=== PATIENT | female | born 1960 | race Caucasian/White ===

== ENCOUNTER → 2017-01-19 | Outpatient (CLI) | payer MEDICARE ==
[~2017-01-19] MED LIST: AMBIEN5 MG PO; ATIVAN 0.50.5 MG/TAB PO; DILAUDID 4MG TAB4 MG PO; FLUOXETINE40 MG PO; GABAPENTIN300 MG PO; NEURONTIN600 MG/TAB PO; NORCO 325 MG-101 TAB PO; NORCO 325 MG-7.1 TAB PO; OXYCODONE CR10 MG PO; PROZAC 10MG10 MG PO; PROZAC 20MG20 MG PO; PROZAC40 MG PO; ULTRAM 50MG TAB50 MG PO; ZANAFLEX 4MG TAB4 MG PO
== END ==
LOC: COL.RAD 08:39
DX: M25.512 Pain in left shoulder (principal)
CPT/HCPCS: J3301; Q9967

== ENCOUNTER → 2017-03-21 | Outpatient (REF) ==
[2017-03-21 08:25] LABS: PH 6 (5-8); SQUAMOUS EPITHELIAL 0-2 /hpf; URINE APPEARANCE Clear; URINE BACTERIA None Seen /hpf; URINE BILIRUBIN Negative (NEGATIVE); URINE BLOOD Negative (NEGATIVE); URINE COLOR Yellow; URINE GLUCOSE Negative (NEGATIVE); URINE KETONE Negative (NEGATIVE); URINE RBC 0-2 /hpf; URINE UROBILINOGEN Negative (NEGATIVE)
== END ==
LOC: ZMSC 08:03
PROVIDERS: Orthopaedic Surgery
DX: Z01.89 Encounter for other specified special examinations (principal)

== ENCOUNTER 2017-11-27 13:58 | Inpatient (IN) | payer MEDICARE ==
[~2017-11-27] VITALS: Ht 160 cm; Wt 89.9 kg
[~2017-11-27 13:58] MED LIST changes: -CONZIP200 MG PO
[2017-11-27 15:16] VITALS: BP 97/56; PULSE 96; TEMP 99.5
[2017-11-27] MEDS ORDERED: CONZIP200 MG PO (20:42)
[2017-11-27 21:50] VITALS: BP 99/64; PULSE 83; TEMP 99
[2017-11-28] VITALS (19 sets, daily range): BP systolic 60–139; BP diastolic 28–84; PULSE 68–118; TEMP 97.9–99.6
[2017-11-28 06:45] LABS: BASO % 0.2 % (0.0-2.0); EOS # 0.1 (0.0-0.7); EOS % 0.7 % (0-4.0); GRAN # 14.7 (1.4-6.5); GRAN % 80.1 % (42.2-75.2); LYMPH # 2.4 (1.2-3.4); LYMPH % 12.8 % (20.0-51.0); MEAN CELL VOLUME 90 fl (80.0-100.0); MEAN CORPUSCULAR HGB CONC 32 g/dl (33.0-37.0); MEAN PLATELET VOLUME 8.5 fl (7.4-10.4); MONO # 1.1 (0.1-0.6); MONO % 5.8 % (1.7-9.3); PLATELET COUNT 286 K/mm3 (130-400); RED BLOOD COUNT 3.92 M/mm3 (4.10-5.30); REDCELL DISTRIBUTION WIDTH-CV 13.2 % (11.5-14.5)
[2017-11-28 07:00] LABS: CALCIUM 8.1 mg/dL (8.4-10.2); CREATININE, serum 1.28 mg/dL (0.52-1.25); POTASSIUM 4.1 mmol/L (3.4-5.0)
[2017-11-28 07:06] LABS: HEMATOCRIT 35.3 % (37.0-47.0); HEMOGLOBIN 11.3 g/dl (12.5-16.0); MEAN CORPUSCULAR HEMOGLOBIN 29 pg (27.0-31.0)
[2017-11-28 07:37] LABS: C-REACTIVE PROTEIN 8.5 mg/dL (0.0-0.9)
[2017-11-29 03:16] VITALS: BP 102/54; PULSE 69; TEMP 97.5
[2017-11-29 07:44] VITALS: BP 90/57; PULSE 71; TEMP 97.6
[2017-11-29 08:40] LABS: BASO % 0.2 % (0.0-2.0); GRAN # 14.6 (1.4-6.5); HEMATOCRIT 34.4 % (37.0-47.0); HEMOGLOBIN 11.2 g/dl (12.5-16.0); LYMPH # 1.1 (1.2-3.4); LYMPH % 6.4 % (20.0-51.0); MEAN CELL VOLUME 88 fl (80.0-100.0); MEAN CORPUSCULAR HEMOGLOBIN 29 pg (27.0-31.0); MEAN CORPUSCULAR HGB CONC 33 g/dl (33.0-37.0); MEAN PLATELET VOLUME 8.5 fl (7.4-10.4); MONO # 0.6 (0.1-0.6); MONO % 3.4 % (1.7-9.3); PLATELET COUNT 258 K/mm3 (130-400); REDCELL DISTRIBUTION WIDTH-CV 12.9 % (11.5-14.5)
[2017-11-29 08:59] LABS: CREATININE, serum 0.8 mg/dL (0.52-1.25); MAGNESIUM 2.2 mg/dL (1.6-2.3)
[2017-11-29 09:12] LABS: CALCIUM 8.7 mg/dL (8.4-10.2); POTASSIUM 4.1 mmol/L (3.4-5.0)
[2017-11-29 11:56] VITALS: BP 109/53; PULSE 72; TEMP 98.2
[2017-11-29 14:59] VITALS: BP 98/72; PULSE 77; TEMP 98.9
[2017-11-29 19:16] VITALS: BP 142/71; PULSE 77; TEMP 98
[2017-11-30 00:23] VITALS: BP 136/71; PULSE 64; TEMP 97.4
[2017-11-30] MEDS ORDERED: VIVLODEX5 MG PO (01:15)
[2017-11-30] MEDS ORDERED: AMITRIPTYLINE H10 M1 PO (01:16)
[2017-11-30 03:52] VITALS: BP 139/78; PULSE 62; TEMP 97.8
[2017-11-30 06:50] LABS: BASO % 0.2 % (0.0-2.0); EOS # 0.1 (0.0-0.7); EOS % 0.4 % (0-4.0); GRAN # 13.2 (1.4-6.5); GRAN % 81.3 % (42.2-75.2); LYMPH # 2.2 (1.2-3.4); LYMPH % 13.7 % (20.0-51.0); MEAN CELL VOLUME 87 fl (80.0-100.0); MEAN CORPUSCULAR HGB CONC 33 g/dl (33.0-37.0); MONO # 0.6 (0.1-0.6); MONO % 3.7 % (1.7-9.3); PLATELET COUNT 288 K/mm3 (130-400); RED BLOOD COUNT 3.66 M/mm3 (4.10-5.30); REDCELL DISTRIBUTION WIDTH-CV 12.6 % (11.5-14.5)
[2017-11-30 06:58] LABS: HEMOGLOBIN 10.4 g/dl (12.5-16.0); MEAN CORPUSCULAR HEMOGLOBIN 28 pg (27.0-31.0)
[2017-11-30 07:07] LABS: CALCIUM 8.4 mg/dL (8.4-10.2); CREATININE, serum 0.77 mg/dL (0.52-1.25); POTASSIUM 3.9 mmol/L (3.4-5.0)
[2017-11-30 08:24] VITALS: BP 139/82; PULSE 79; TEMP 98.5
[2017-11-30 12:12] VITALS: BP 160/95; PULSE 80
[2017-11-30 15:59] VITALS: BP 155/96; PULSE 75; TEMP 98.3
[2017-11-30 19:40] VITALS: BP 151/94; PULSE 71; TEMP 98.3
[2017-12-01 01:06] VITALS: BP 136/59; PULSE 73; TEMP 98.5
[2017-12-01 05:58] VITALS: BP 140/79; PULSE 79; TEMP 98.5
[2017-12-01 06:57] LABS: BASO # 0.1 (0.0-0.2); BASO % 0.6 % (0.0-2.0); EOS # 0.2 (0.0-0.7); EOS % 2.2 % (0-4.0); GRAN # 4.9 (1.4-6.5); GRAN % 56.6 % (42.2-75.2); LYMPH # 2.8 (1.2-3.4); LYMPH % 32.9 % (20.0-51.0); MEAN CELL VOLUME 87 fl (80.0-100.0); MEAN CORPUSCULAR HGB CONC 33 g/dl (33.0-37.0); MEAN PLATELET VOLUME 8.6 fl (7.4-10.4); MONO # 0.6 (0.1-0.6); MONO % 7.2 % (1.7-9.3); PLATELET COUNT 315 K/mm3 (130-400); RED BLOOD COUNT 3.91 M/mm3 (4.10-5.30)
[2017-12-01 07:06] LABS: CALCIUM 8.7 mg/dL (8.4-10.2); CREATININE, serum 0.86 mg/dL (0.52-1.25); MAGNESIUM 1.9 mg/dL (1.6-2.3); POTASSIUM 3.7 mmol/L (3.4-5.0)
[2017-12-01 07:10] LABS: HEMOGLOBIN 11.2 g/dl (12.5-16.0); MEAN CORPUSCULAR HEMOGLOBIN 29 pg (27.0-31.0)
[2017-12-01 08:00] VITALS: BP 142/83; PULSE 69; TEMP 98.2
[2017-12-01 12:05] VITALS: BP 159/86; PULSE 67; TEMP 98.2
[2017-12-01 15:07] VITALS: BP 164/90; PULSE 62; TEMP 98.3
[2017-12-01 20:00] VITALS: BP 155/50; PULSE 67; TEMP 98.3
[2017-12-02] VITALS (7 sets, daily range): BP systolic 137–157; BP diastolic 73–93; PULSE 60–85; TEMP 98.2–98.6
[2017-12-02 06:55] LABS: BASO # 0.1 (0.0-0.2); BASO % 0.9 % (0.0-2.0); EOS # 0.2 (0.0-0.7); GRAN # 4.3 (1.4-6.5); GRAN % 53.8 % (42.2-75.2); LYMPH # 2.8 (1.2-3.4); LYMPH % 34.2 % (20.0-51.0); MEAN CELL VOLUME 87 fl (80.0-100.0); MEAN CORPUSCULAR HGB CONC 33 g/dl (33.0-37.0); MEAN PLATELET VOLUME 8.4 fl (7.4-10.4); MONO # 0.6 (0.1-0.6); MONO % 7.5 % (1.7-9.3); PLATELET COUNT 347 K/mm3 (130-400); REDCELL DISTRIBUTION WIDTH-CV 12.6 % (11.5-14.5)
[2017-12-02 07:09] LABS: HEMATOCRIT 35.5 % (37.0-47.0); HEMOGLOBIN 11.7 g/dl (12.5-16.0); MEAN CORPUSCULAR HEMOGLOBIN 29 pg (27.0-31.0)
[2017-12-02 07:10] LABS: CALCIUM 9.3 mg/dL (8.4-10.2); CREATININE, serum 0.87 mg/dL (0.52-1.25); MAGNESIUM 1.8 mg/dL (1.6-2.3); PHOSPHOROUS 4.5 mg/dL (2.5-4.5); POTASSIUM 3.9 mmol/L (3.4-5.0)
[2017-12-03 04:25] VITALS: BP 135/71; PULSE 91; TEMP 98.3
[2017-12-03 06:45] LABS: BASO # 0.1 (0.0-0.2); BASO % 0.5 % (0.0-2.0); EOS # 0.2 (0.0-0.7); EOS % 2.5 % (0-4.0); GRAN # 5.2 (1.4-6.5); GRAN % 54.7 % (42.2-75.2); HEMOGLOBIN 12.3 g/dl (12.5-16.0); LYMPH # 3.2 (1.2-3.4); LYMPH % 33.8 % (20.0-51.0); MEAN CELL VOLUME 85 fl (80.0-100.0); MEAN CORPUSCULAR HEMOGLOBIN 29 pg (27.0-31.0); MEAN CORPUSCULAR HGB CONC 34 g/dl (33.0-37.0); MEAN PLATELET VOLUME 8.3 fl (7.4-10.4); MONO # 0.7 (0.1-0.6); MONO % 7.7 % (1.7-9.3); PLATELET COUNT 368 K/mm3 (130-400); RED BLOOD COUNT 4.28 M/mm3 (4.10-5.30); REDCELL DISTRIBUTION WIDTH-CV 12.9 % (11.5-14.5)
[2017-12-03 07:01] LABS: CALCIUM 9.3 mg/dL (8.4-10.2); CREATININE, serum 0.76 mg/dL (0.52-1.25); MAGNESIUM 2.2 mg/dL (1.6-2.3); PHOSPHOROUS 4.7 mg/dL (2.5-4.5); POTASSIUM 3.7 mmol/L (3.4-5.0)
[2017-12-03 07:02] LABS: HEMATOCRIT 36.5 % (37.0-47.0)
[2017-12-03 07:43] VITALS: BP 156/97; PULSE 88; TEMP 97.9
[2017-12-03] MEDS ORDERED: ASPI325T6 PO (08:25)
[2017-12-03] MEDS ORDERED: ZESTRIL 5MG5 MG PO (08:25)
[2017-12-03] MEDS ORDERED: PERCOCET 325 MG1 TA2 PO (08:27)
[2017-12-03] MEDS ORDERED: HEPARIN 50500 U/5 ML IV (09:01)
[2017-12-03] MEDS ORDERED: NS INT FLUSH 1010 ML IV (09:16)
[2017-12-03] MEDS ORDERED: CEFAZOLIN SODI100 ML IV (09:23)
[2017-12-03] MEDS ORDERED: GLUCOSE TEST ST1 DEV MC (09:24)
[2017-12-03] MEDS ORDERED: FREESTYLE PREC1 EAC5 MC (09:24)
[2017-12-03 11:51] VITALS: BP 155/99; PULSE 83; TEMP 98.7
== END 2017-12-03 16:41 | disposition home health service (06) | DRG 495 ==
LOC: MEDICAL 13:58
PROVIDERS: Internal Medicine; Nurse Practitioner Family; Orthopaedic Surgery Sports Medicine; Physician Assistant
PROC: 0QPK04Z Removal of Internal Fixation Device from Left Fibula, Open Approach (ICD-10-PCS; principal; 2017-11-28 16:00)
DX: T84.625A Infection and inflammatory reaction due to internal fixation device of left fibula, initial encounter (principal); A41.01 Sepsis due to Methicillin susceptible Staphylococcus aureus; B95.61 Methicillin susceptible Staphylococcus aureus infection as the cause of diseases classified elsewhere; Z23 Encounter for immunization; Z87.891 Personal history of nicotine dependence; R73.03 Prediabetes; G89.29 Other chronic pain; M54.5 Low back pain; F41.9 Anxiety disorder, unspecified; I95.2 Hypotension due to drugs; T39.1X5A Adverse effect of 4-Aminophenol derivatives, initial encounter
CPT/HCPCS: 99222-AI; 99232-AI; A9284; C1751; J0690; J0692; J1100; J1650; J1815; J2250; J2270; J2405; J2704; J3010; J3370; J3475; J7030; J7040; J7050; J7120

== ENCOUNTER → 2017-11-27 | Outpatient (REF) ==
[~2017-11-27] MED LIST changes: +CONZIP200 MG PO
== END ==
LOC: ZLAB.WCH 18:12
DX: Z01.89 Encounter for other specified special examinations (principal)

== ENCOUNTER 2017-12-27 15:00 | Outpatient (CLI) | payer MEDICARE ==
[~2017-12-27] VITALS: Ht 160 cm; Wt 88.1 kg
[~2017-12-27 15:00] MED LIST changes: +AMITRIPTYLINE H10 M1 PO; +ASPI325T6 PO; +CEFAZOLIN SODI100 ML IV; +CONZIP200 MG PO; +FREESTYLE PREC1 EAC5 MC; +GLUCOSE TEST ST1 DEV MC; +HEPARIN 50500 U/5 ML IV; +NS INT FLUSH 1010 ML IV; +PERCOCET 325 MG1 TA2 PO; +VIVLODEX5 MG PO; +ZESTRIL 5MG5 MG PO
[2017-12-27 15:25] VITALS: BP 134/84; PULSE 90; TEMP 98.7
== END 2017-12-27 15:44 | disposition home or self-care (01) ==
LOC: EUO 15:00
DX: T81.4XXA Infection following a procedure, initial encounter (principal); A41.9 Sepsis, unspecified organism; L08.9 Local infection of the skin and subcutaneous tissue, unspecified; Z45.2 Encounter for adjustment and management of vascular access device; Z48.00 Encounter for change or removal of nonsurgical wound dressing

== ENCOUNTER → 2018-05-02 | Outpatient (CLI) | payer MEDICARE | LOC: COL.LAB 09:13 | DX: Z01.818 Encounter for other preprocedural examination (principal); M25.562 Pain in left knee ==

== ENCOUNTER → 2019-11-26 | Outpatient (CLI) | payer MEDICARE ==
[2019-11-26 20:27] LABS: BASO # 0.1 (0.0-0.2); BASO % 0.7 % (0.0-2.0); EOS # 0.1 (0.0-0.7); EOS % 0.9 % (0-4.0); GRAN # 8.3 (1.4-6.5); GRAN % 64.8 % (42.2-75.2); HEMOGLOBIN 14.9 g/dl (12.5-16.0); LYMPH # 3.3 (1.2-3.4); LYMPH % 25.7 % (20.0-51.0); MEAN CELL VOLUME 86 fl (80.0-100.0); MEAN CORPUSCULAR HEMOGLOBIN 28 pg (27.0-31.0); MEAN CORPUSCULAR HGB CONC 33 g/dl (33.0-37.0); MEAN PLATELET VOLUME 8.3 fl (7.4-10.4); MONO % 7.6 % (1.7-9.3); PLATELET COUNT 434 K/mm3 (130-400); RED BLOOD COUNT 5.26 M/mm3 (4.10-5.30); REDCELL DISTRIBUTION WIDTH-CV 12.7 % (11.5-14.5)
[2019-11-26 20:57] LABS: ERYTHROCYTE SEDIMENTATION RATE 16 mm/hr (0-30)
== END ==
LOC: COL.LAB 19:25 → ZCOL.LAB 19:25
PROVIDERS: Orthopaedic Surgery
DX: M79.89 Other specified soft tissue disorders (principal)